=== PATIENT | male | born 1950 | race Two or more races ===

== ENCOUNTER 2018-07-06 05:48 | Inpatient (IN) ==
[2018-07-06] MEDS ORDERED: ONDANSETRON 4 MG/2 ML VIAL IV PRN (08:19)
[2018-07-06] MEDS ORDERED: ACETAMINOPHEN 325 MG TABLET PO PRN (08:19)
[2018-07-06] MEDS ORDERED: LABETALOL 20 MG/4 ML SYRINGE IV PRN (08:23)
[2018-07-06] MEDS ORDERED: ONDANSETRON 4 MG TABLET PO PRN (08:41)
[2018-07-06 10:15] LABS: Basophils # 0.1 10*3/uL (0.0-0.2); Basophils % 0.9 % (0.0-0.8); Eosinophils # 0.2 10*3/uL (0.0-0.87); Eosinophils % 2.9 % (0.00-10.9); Hematocrit 39.5 VOL% (42.0-52.0); Hemoglobin 13.6 GM/DL (14.0-18.0); Immature Granulocytes % 0.5 %; Immature Granulocytes Absolute 0.03 #; Lymphocytes % 18.7 % (21.2-54.2); Mean Corpuscular HGB Conc 34.4 GM/DL (32-36); Mean Corpuscular Hemoglobin 34 PG (27-34); Mean Platelet Volume 10.3 FL (9.6-12.0); Monocytes # 0.5 10*3/uL (0.11-0.8); Monocytes % 9.2 % (1.7-12.7); Neutrophils # 3.8 10*3/uL (1.4-7.4); Neutrophils % 67.8 % (38.7-73.9); Platelet Count 230 T/CUMM (130-400); Red Blood Count 3.95 MC/CUMM (3.8-5.5); Red Cell Distribution Width 13.4 % (9.3-17.3); White Blood Count 5.6 T/CUMM (4-12)
[2018-07-06 10:55] LABS: Calcium 8.6 MG/DL (8.5-10.1); Osmolality,Calculated 271.7 MOS/KG (273-304); Potassium 3.8 MMOL/L (3.5-5.1)
[2018-07-06 10:57] LABS: Cholesterol 185 MG/DL (50-200); HDL Cholesterol 40 MG/DL (40-60); Risk Ratio 4.63; Triglycerides 95 MG/DL (2-150)
[2018-07-06] MEDS: ASPIRIN EC 81 MG TABLET PO SCH (18:05)
[2018-07-06] MEDS: PANTOPRAZOLE 40 MG TABLET PO SCH (18:33)
[2018-07-06] MEDS: LOSARTAN 50 MG TABLET PO SCH (18:33)
[2018-07-06] MEDS: ATORVASTATIN 40 MG TABLET PO SCH (20:50)
[2018-07-06] MEDS: ENOXAPARIN 40 MG/0.4 ML SYRINGE SUBCUT SCH (20:52)
[2018-07-07 05:27] LABS: Basophils # 0.1 10*3/uL (0.0-0.2); Basophils % 0.7 % (0.0-0.8); Eosinophils # 0.2 10*3/uL (0.0-0.87); Eosinophils % 2.3 % (0.00-10.9); Hematocrit 39.7 VOL% (42.0-52.0); Hemoglobin 13.7 GM/DL (14.0-18.0); Immature Granulocytes % 0.3 %; Immature Granulocytes Absolute 0.03 #; Lymphocytes # 1.3 10*3/uL (1.4-4.0); Lymphocytes % 14.4 % (21.2-54.2); Mean Corpuscular HGB Conc 34.5 GM/DL (32-36); Mean Corpuscular Hemoglobin 34 PG (27-34); Mean Corpuscular Volume 99.7 FL (87-102); Monocytes # 0.9 10*3/uL (0.11-0.8); Monocytes % 9.7 % (1.7-12.7); Neutrophils # 6.5 10*3/uL (1.4-7.4); Neutrophils % 72.6 % (38.7-73.9); Platelet Count 224 T/CUMM (130-400); Red Blood Count 3.98 MC/CUMM (3.8-5.5); Red Cell Distribution Width 13.4 % (9.3-17.3); White Blood Count 8.9 T/CUMM (4-12)
[2018-07-07 06:11] LABS: Albumin 2.9 G/DL (3.4-5.0); Calcium 8.9 MG/DL (8.5-10.1); Osmolality,Calculated 270.8 MOS/KG (273-304); Potassium 3.8 MMOL/L (3.5-5.1); Total Protein 6.9 G/DL (6.4-8.3)
[2018-07-07] MEDS: LOSARTAN 50 MG TABLET PO SCH (08:37)
[2018-07-07] MEDS: PANTOPRAZOLE 40 MG TABLET PO SCH (08:37)
[2018-07-07] MEDS: ASPIRIN EC 81 MG TABLET PO SCH (08:37)
[2018-07-07] MEDS: ATORVASTATIN 40 MG TABLET PO SCH (20:11)
[2018-07-07] MEDS: ENOXAPARIN 40 MG/0.4 ML SYRINGE SUBCUT SCH (20:12)
[2018-07-08] MEDS: ASPIRIN EC 81 MG TABLET PO SCH (10:10)
[2018-07-08] MEDS: PANTOPRAZOLE 40 MG TABLET PO SCH (10:10)
[2018-07-08] MEDS: LOSARTAN 50 MG TABLET PO SCH (10:10)
[2018-07-08] MEDS: APIXABAN 5 MG TABLET PO SCH ×2 (12:38→21:38)
[2018-07-08] MEDS: ATORVASTATIN 40 MG TABLET PO SCH (21:37)
[2018-07-09 02:43] LABS: Basophils # 0.1 10*3/uL (0.0-0.2); Basophils % 0.8 % (0.0-0.8); Eosinophils # 0.3 10*3/uL (0.0-0.87); Eosinophils % 5.1 % (0.00-10.9); Hemoglobin 12.4 GM/DL (14.0-18.0); Immature Granulocytes % 0.5 %; Immature Granulocytes Absolute 0.03 #; Lymphocytes # 1.3 10*3/uL (1.4-4.0); Mean Corpuscular HGB Conc 33.5 GM/DL (32-36); Mean Corpuscular Hemoglobin 34 PG (27-34); Mean Corpuscular Volume 102.8 FL (87-102); Monocytes # 0.5 10*3/uL (0.11-0.8); Monocytes % 8.4 % (1.7-12.7); Neutrophils # 4.1 10*3/uL (1.4-7.4); Neutrophils % 65.2 % (38.7-73.9); Platelet Count 178 T/CUMM (130-400); Red Cell Distribution Width 13.2 % (9.3-17.3); White Blood Count 6.3 T/CUMM (4-12)
[2018-07-09 03:18] LABS: Calcium 8.3 MG/DL (8.5-10.1); Osmolality,Calculated 273.5 MOS/KG (273-304); Potassium 3.8 MMOL/L (3.5-5.1)
[2018-07-09] MEDS ORDERED: ceFAZolin 1,000 MG in SYRINGE 1 EACH IV ONE (06:00)
[2018-07-09] MEDS ORDERED: ceFAZolin 1,000 MG VIAL ONE (08:18)
[2018-07-09] MEDS: LOSARTAN 50 MG TABLET PO SCH (08:18)
[2018-07-09] MEDS ORDERED: LIDOCAINE 1%/EPI INJ 20 ML VIAL ONE (08:18)
[2018-07-09] MEDS ORDERED: TISSUE ADHESIVE 1 EACH APPLICATOR TOP ONE (08:18)
[2018-07-09] MEDS: PANTOPRAZOLE 40 MG TABLET PO SCH (08:19)
[2018-07-09] MEDS: APIXABAN 5 MG TABLET PO SCH ×2 (08:19→20:31)
[2018-07-09] MEDS ORDERED: PROPOFOL 200 MG/20 ML VIAL IV ONE (15:17)
[2018-07-09] MEDS ORDERED: fentaNYL 100 MCG/2 ML VIAL ONE (15:18)
[2018-07-09] MEDS ORDERED: ETOMIDATE 40 MG/20 ML VIAL IV ONE (15:18)
[2018-07-09] MEDS: ATORVASTATIN 40 MG TABLET PO SCH (20:31)
[2018-07-10] MEDS ORDERED: cephALEXin 500 MG CAPSULE PO SCH (09:30)
[2018-07-10 09:52] VITALS: BP 147/80
== END 2018-07-10 20:07 | disposition home or self-care (01) | DRG 42 ==
LOC: EDBD → N.EDINP 05:48 → N.ED 05:48 → N.4E 09:01 → SUATTDRO 07-07 13:11 → N.4E 07-07 23:04
PROVIDERS: ADMIT Internal Medicine; ATTEND Internal Medicine